=== PATIENT | female | born 1975 | race Caucasian/White ===

== ENCOUNTER → 2019-09-27 | Outpatient (CLI) | payer SELFPAY | LOC: MC.RAD 18:14 | DX: Z12.31 Encounter for screening mammogram for malignant neoplasm of breast (principal); N64.9 Disorder of breast, unspecified ==

== ENCOUNTER → 2019-10-05 | Outpatient (CLI) | payer SELFPAY | LOC: MC.RAD 11:01 | DX: N60.01 Solitary cyst of right breast (principal) | CPT/HCPCS: G0279 ==

== ENCOUNTER → 2019-10-10 | Outpatient (CLI) | payer SELFPAY | LOC: MC.RAD 08:02 | DX: D24.1 Benign neoplasm of right breast (principal); N60.31 Fibrosclerosis of right breast; Z98.82 Breast implant status ==